=== PATIENT | female | born 1990 | race Caucasian/White ===

== ENCOUNTER 2023-04-17 08:34 | Outpatient (CLI) | payer OTHER ==
[2023-04-17 08:56] LABS: BASOPHILS % (AUTO) 0.8 %; EOSINOPHILS # (AUTO) 0.1 10^3/uL (0.0-0.7); EOSINOPHILS % (AUTO) 2.4 %; LYMPHOCYTES # (AUTO) 1.9 10^3/uL (1.5-3.5); MEAN CORPUSCULAR HEMOGLOBIN 30.9 pg (27.0-31.0); MEAN CORPUSCULAR HGB CONC 33.3 g/dL (32.0-36.0); MEAN CORPUSCULAR VOLUME 92.7 fL (81.0-99.0); MEAN PLATELET VOLUME 9.7 fL (7.9-10.8); MONOCYTES # (AUTO) 0.4 10^3/uL (0.0-1.0); MONOCYTES % (AUTO) 8.8 %; NEUTROPHILS # (AUTO) 2.5 10^3/uL (1.5-6.6); NEUTROPHILS % (AUTO) 49.8 %; PLT - PLATELET COUNT 259 10^3/uL (130-450); RED BLOOD COUNT 4.53 10^6/uL (4.20-5.40); RED CELL DISTRIBUTION WIDTH 12.2 % (12.0-15.0)
[2023-04-17 09:17] LABS: ALBUMIN 4.6 g/dL (3.2-5.5)
[2023-04-17 09:18] LABS: ALBUMIN/GLOBULIN RATIO 1.5 (1.0-2.2); BILIRUBIN,TOTAL 0.6 mg/dL (0.2-1.0); CREATININE 0.9 mg/dL (0.6-1.3); POTASSIUM 4.2 mmol/L (3.5-4.5); TOTAL PROTEIN 7.6 g/dL (6.4-8.9)
[2023-04-17 09:31] LABS: THYROID STIMULATING HORMONE 1.26 uIU/mL (0.34-5.60)
[2023-04-17 09:37] LABS: FERRITIN 41.1 ng/mL (11.0-306.8)
[2023-04-17 09:38] LABS: PROLACTIN 19.95 ng/mL
[2023-04-17 11:50] LABS: ESTIMATED AVERAGE GLUCOSE 97 mg/dL (70-100)
[2023-04-18 07:09] LABS: ESTRADIOL 44.8 pg/mL (.); INSULIN 6.1 uIU/mL (2.6-24.9); PROGESTERONE 0.5 ng/mL (.)
[2023-04-18 21:07] LABS: FREE TESTOSTERONE(DIRECT) 4.4 pg/mL (0.0-4.2); SEX HORM BINDING GLOB SERUM 87.1 nmol/L (24.6-122.0)
== END 2023-04-17 08:35 | disposition home or self-care (01) ==
LOC: LAB 08:34
PROVIDERS: ATTEND Nurse Practitioner
DX: E28.2 Polycystic ovarian syndrome (principal)
CPT/HCPCS: 36415; 80053; 82397; 82533; 82627; 82670; 82728; 83001; 83002; 83036; 83498; 83525; 84144; 84146; 84270; 84402; 84403; 84443; 85025